=== PATIENT | male | born 1975 | race Caucasian/White ===

== ENCOUNTER 2017-06-06 22:29 | Emergency (ER) | payer SELFPAY ==
[~2017-06-06] VITALS: Ht 175.3 cm; Wt 86.2 kg
[2017-06-06 22:40] VITALS: BP 110/64
--- NOTE | 2017-06-06 22:44 | NUR ---
BIBA TO ER BED 6
--- NOTE | 2017-06-06 22:49 | NUR ---
Patient being evaluated by physician at bedside.
--- NOTE | 2017-06-06 23:25 | NUR ---
Nupur owusu in [facility] - 06/07/17 at 0014 by MEDRJJ PT REFUSED TO SING OR WANT ANY HOMELESS PATIENT WAIVER FORM.
--- NOTE | 2017-06-06 23:26 | NUR ---
Patient discharged with v/s stable. Written and verbal after care instructions given and explained. Patient alert, oriented and verbalized understanding of instructions. Wheel Chair Assisted with to home. All questions addressed prior to discharge. ID band removed. Patient advised to follow up with PMD.NO Rx given. Patient educated on indication of medication including possible reaction and side effects. Opportunity to ask questions provided and answered.
[2017-06-06 23:27] VITALS: BP 111/63
== END 2017-06-06 23:26 | disposition home or self-care (01) ==
LOC: MED 22:29
DX: F10.129 Alcohol abuse with intoxication, unspecified (principal)
CPT/HCPCS: 99283